=== PATIENT | male | born 1995 | race Caucasian/White ===

== ENCOUNTER 2019-06-20 17:12 | Emergency (ER) | payer OTHER ==
[~2019-06-20] VITALS: Ht 170.2 cm; Wt 110.7 kg
[2019-06-20] MEDS ORDERED: NOHOMEMEDICATIONS (17:42)
[2019-06-20 18:34] LABS: ABSOLUTE NEUTROPHILS 7.2 thou/uL (1.4-8.2); BASOPHILS 0.5 % (0.0-2.0); EOSINOPHILS 1.6 % (0.0-3.0); HEMOGLOBIN 14.3 gm/dL (14.0-18.0); LYMPHOCYTES 28.9 % (24.0-44.0); MCH 28.9 pg (26.0-34.0); MCHC 33.2 g/dL (28.0-37.0); MONOCYTES 7.7 % (1.0-8.0); PLATELET COUNT 257 thou/uL (150-400); POLYS 61.3 % (36.0-66.0); RBC 4.94 mil/uL (4.50-6.00); RDW 13.1 % (10.5-14.5); WBC 11.7 thou/uL (4.0-11.0)
[2019-06-20 18:36] LABS: CALCIUM 9.1 mg/dL (8.5-10.1); CREATININE 0.9 mg/dL (0.7-1.3)
[2019-06-20 18:42] LABS: ALBUMIN 4.2 g/dL (3.4-5.0); TOTAL BILIRUBIN 0.6 mg/dL (<0.1-1.0); TOTAL PROTEIN 8.3 g/dL (6.4-8.2)
[2019-06-20] MEDS ORDERED: BACTRIM DS TAB1 EACH PO (20:03)
[2019-06-20] MEDS ORDERED: NORCO 5-325 TA1 EAC1 PO (20:03)
[2019-06-20 20:31] LABS: LARGE PLATELETS FEW
[2019-06-20 20:36] VITALS: BP 111/79
== END 2019-06-20 20:30 | disposition home or self-care (01) ==
LOC: ER 17:12
PROVIDERS: Physician Assistant
DX: L05.01 Pilonidal cyst with abscess (principal); M53.3 Sacrococcygeal disorders, not elsewhere classified